=== PATIENT | male | born 1990 | race Caucasian/White ===

== ENCOUNTER 2020-04-21 03:49 | Emergency (ER) | payer SELFPAY ==
[2020-04-21 03:53] VITALS: BP 174/84; PULSE 118; RESP 16; TEMP 36.6; O2SAT 100
--- NOTE | 2020-04-21 04:07 | ED.ABDPAIN ---
HPI - Abdominal Pain General Chief Complaint: Abdominal Pain Stated Complaint: BLOODY STOOL Time Seen by Provider: 04/21/20 03:51 Source: RN notes reviewed History of Present Illness HPI narrative: Patient presents emergency department from home for blood in stool. Patient states approximate 1 hour ago he had an episode of bright red blood in the stool. States there is minimal stool mixed in with it he states it associated with left upper quadrant abdominal pain when he states symptoms initially occurred but states abdominal pain has resolved. He denies any fevers or chills nausea vomiting or any other symptoms he denies any previous history of blood in stool denies any previous GI history Related Data Home Medications Medication Instructions Recorded Confirmed No Home Medications 04/21/20 04/21/20 Allergies Allergy/AdvReac Type Severity Reaction Status Date / Time No Known Allergies Allergy Verified 04/21/20 03:55 Review of Systems Review of Systems: Narrative: Gen.: Denies fevers or chills ENT: Denies congestion Respiratory: Denies shortness of breath or cough CV: Denies chest pain or palpitations GI: See HPI denies burning, urgency, frequency or hematuria Musculoskeletal: Denies back pain or muscle pain Neuro: Denies numbness, tingling, weakness or focal weakness Skin: Denies rash Except as documented, all other systems reviewed and negative PMFSH Past Medical History Medical History (Updated 04/21/20 @ 05:51 by Ezra Schofield DO) Patient denies significant medical history Social History Social History (Updated 04/21/20 @ 04:08 by Ezra Schofield DO) Smoking status: Never smoker Gender identity (if verbalized by the patient): Male Exam Narrative: Exam Narrative: APPEARANCE: No acute distress, nontoxic, resting in bed HEENT: Normocephalic, atraumatic, OMM RESPIRATORY: No respiratory distress, clear to auscultation bilaterally with no rhonchi wheezing or rales CARDIOVASCULAR: RRR s murmur ABDOMINAL: Soft, nondistended, nontender to palpation no rebound or guarding Rectal: No hemorrhoids or fissures no active bleeding small amount of reddish-brown stool Hemoccult positive MUSCULOSKELETAl: Moves all extremities. No clubbing, cyanosis or edema. NEURO: Awake and alert. Following commands, speech normal, no focal deficits SKIN:: Warm, dry. Normal Color PSYCHIATRIC: Normal affect/mood Course Course Emergency Course: Discussed with Dr. Gunter for GI presentation work-up please patient will be discharged at this time with follow-up as an outpatient Discussed with patient who states he has been told he needs to see GI for work-up for possible Crohn's disease in past states has had problems with recurrent diarrhea Patient had a bowel movement in ED with no blood Discussed with patient results of workup and diagnosis. Discussed need for follow-up with primary care, proper use of medication, and reasons to return to the emergency department. Patient understands and agrees to current treatment plan Vital Signs Vital signs: Vital Signs Temperature 97.9 F 04/21/20 03:53 Pulse Rate 118 H 04/21/20 03:53 Respiratory Rate 16 04/21/20 03:53 Blood Pressure 174/84 H 04/21/20 03:53 Pulse Oximetry 100 04/21/20 03:53 Temperature 97.9 F 04/21/20 03:53 Pulse Rate 102 H 04/21/20 05:04 Respiratory Rate 18 04/21/20 05:04 Blood Pressure 139/95 H 04/21/20 05:04 Pulse Oximetry 99 04/21/20 05:04 MDM - Abdominal Pain Lab Data Result diagrams: 04/21/20 04:17 04/21/20 04:17 Labs: Lab Results 04/21/20 04/21/20 04/21/20 Range/Units 04:17 04:17 04:17 WBC 11.9 H (4.5-10.0) K/mm3 RBC 4.99 (4.6-6.20) M/mm3 Hgb 15.5 (14.0-18.0) g/dL Hct 42.4 (42.0-52.0) % MCV 85.0 (80-100) fl MCH 31.1 (26-34) pg MCHC 36.6 H (32-36) g/dl RDW 12.2 (11.5-14.5) % Plt Count 284 (150-375) k/mm3 MPV 10.8 H (7.4-10.4)
[2020-04-21] MEDS: SODIUM CHLORIDE 0.9% IV 1,000 ML 999 ML IV CONT (04:27)
[2020-04-21 04:30] LABS: Basophils Percent Auto 0.3 % (0.2-1.2); Eosinophils Absolute Auto 0.1 K/mm3 (0-0.3); Eosinophils Percent Auto 0.6 % (0-4.4); Hematocrit 42.4 % (42.0-52.0); Hemoglobin 15.5 g/dL (14.0-18.0); Immature Granulocyte Absolute 0.05 K/mm3 (0.00-0.031); Immature Granulocyte Percent A 0.4 % (0-0.5); Lymphocytes Absolute Auto 2.36 K/mm3 (0.9-3.2); Lymphocytes Percent Auto 19.9 % (18.3-44.2); Mean Corpuscular HGB Conc 36.6 g/dl (32-36); Mean Corpuscular Hemoglobin 31.1 pg (26-34); Mean Platelet Volume 10.8 fl (7.4-10.4); Monocytes Absolute Auto 0.7 K/mm3 (0.1-0.6); Monocytes Percent Auto 6.1 % (2.6-8.5); Neutrophils Absolute Auto 8.7 K/mm3 (1.3-6.7); Neutrophils Percent Auto 72.7 % (45.5-73.1); Platelet Count Result 284 k/mm3 (150-375); Red Blood Count 4.99 M/mm3 (4.6-6.20); Red Cell Distribution Width 12.2 % (11.5-14.5); White Blood Count 11.9 K/mm3 (4.5-10.0)
[2020-04-21 04:45] LABS: Alanine Aminotransferase 32 U/L (4-50); Albumin Level 4.5 g/dL (3.5-5.1); Alkaline Phosphatase 83 U/L (38-126); Aspartate Amino Transferase 44 U/L (17-59); Bilirubin,Total 0.4 mg/dL (0.2-1.3); Blood Urea Nitrogen 13 mg/dL (9-20); Calcium 9.3 mg/dL (8.4-10.2); Carbon Dioxide 26 mmol/L (22-30); Chloride 105 mmol/L (98-107); Estimated Glomerular Filt Rate > 60; Glucose 121 mg/dL (75-110); Lactic Acid Reflex 1.6 mmol/L (0.7-2.1); Lipase 216 U/L (23-300); Potassium 3.8 mmol/L (3.4-5.0); Sodium 140 mmol/L (137-145)
[2020-04-21 04:46] LABS: Partial Thromboplastin Time 28.3 SECONDS (22.3-36.8); Prothrombin Time 12.7 Seconds (11.1-14.7)
[2020-04-21 05:04] VITALS: BP 139/95; PULSE 102; RESP 18; O2SAT 99
[2020-04-21 06:29] VITALS: BP 112/98; PULSE 96; RESP 18; O2SAT 98
== END 2020-04-21 06:31 | disposition home or self-care (01) ==
PROVIDERS: Emergency Provider Emergency Medicine
DX: K92.2 Gastrointestinal hemorrhage, unspecified (principal)
CPT/HCPCS: 36415; 80053; 83605; 83690; 85025; 85610; 85730; 86850; 86900; 86901; 96360; 99283; J7030

== ENCOUNTER 2023-05-30 09:17 | Outpatient (CLI) | payer BC, SELFPAY ==
--- NOTE | ~2023-05-30 | SLEEP.INT_ITS ---
Titration Report Patient Name: FLACA AGUILLON Study Date: 05/30/2023 Referring Physician: Stefan Mims PA-C Indications for Polysomnography/Sleep History The patient is a 32 year-old male who is 5' 9 and weighs 285.0 lbs. His BMI equals 42.2. ESS 8. A fu ll night titration was performed to evaluate for severe obstructive sleep apnea on a home sleep test 04/13/2023 with an A HI 78.5 and desaturation to 71%. He did not complete a sleep questionnaire. Medical History Gastroesophageal reflux disease Medications None Polysomnogram Data A full night polysomnogram using the [employer]am[employer] Sleepluma-id multi-channel system recorded the standard phys iologic parameters including EEG, EOG, submentalis EMG, anterior tibialis EMG, EKG, body position, nasal and oral airflow using nasal pressure sensor and thermistor. Respiratory parameters of chest and abdominal movements were recorded with Respiratory Inductance Plethysmography belts. Oxygen saturation was recorded by pulse oximetry. Video monitoring was also performed. Sleep stages, periodic limb movements, and EEG arousals were scored in 30 second epochs according to the criteria of the AASM Scoring Manual. The Apnea-Hypopnea Index was calculated using CMS guidelines for definition of hypopnea while scoring respiratory events. Sleep Architecture The total recording time of the polysomnogram was 553.3 minutes. The total sleep time was 497.0 barbara ally. The patient spent 2.2% of total sleep time in Stage N1, 47.3% in Stage N2, 20.9% in Stages N3, and 29.6% in REM. Sleep latency was 6.0 minutes. REM latency was 67.5 minutes. Sleep Efficiency was 89.8%. Wake after Sleep Onset time was 50.0 minutes. Titration Summary The patient was titrated using a large ResMed AirTouch F20 fullface mask at pressures ranging from CP AP 7 cmH20 with 3 cm of EPR, 9th cm with 3 cm EPR, CPAP 10 cm with 3 cm EPR. Patient was transition to BiPAP , titrated through 09/27, 10/28, 03/08, 14, 15, 16/, 16/ with a backup rate of 12 with an apnea-hypopnea index of 0. Additional pressures included BiPAP with a backup rate of 12, 18/ with a rate of 12, wi th a rate of 12, with a rate of 12, 05/10 with a rate of 12. A backup rate was discontinued, patient was tested on 05/10, 05/11, , , . The last pressure the patient used was BiPAP with a backup rate of 12. Respiratory Events The polysomnogram revealed a presence of 147 obstructive, 67 central, and 4 mixed apneas resulting in an Apnea index of 26.3 events per hour. There were 64 hypopneas (???3% desat and/or Ar.) resulting in an Apnea ???3% desat and/or Ar.) of 34.0 events per hour. There were 64 hypopneas (???4% desat) resulting in an Apnea Index (AHI ???4% desat) of 34.0 events per hour. There were - Respiratory Effort Related Arousals re sulting in a RERA index of - events per hour. The Respiratory Disturbance Index is 34.0 events per hour. He had some p ost-arousal central apneas observed. Arousal Index There was a total of 244 arousals for an index of 29.5. There were 95 respiratory arousals for an in dex of 11.5. There were no periodic limb movement arousals for an index of 0. There were 0 isolated limb movement arous als for an index of 0 and 149 spontaneous arousals for an index of 18.0. Oximetry Data Mean oxygen saturation was 94.8%. The lowest oxygen saturation during sleep was 75.0%. Time spent w ith oxygen saturation at or below 88% was 34.0 minutes (6.2%). The patient had 258 desaturations of 4% or greate r for an index of 31.3. Cardiac Summary Electrocardiogram demonstrated normal sinus rhythm without arrhythmias; average pulse rate was 73 bpm . The minimum pulse rate was 56 bpm while the maximum pulse rate was 110 bpm. EEG Profile There was no evidence of epileptiform activity during sleep Limb Activity There
== END 2023-05-31 07:00 | disposition home or self-care (01) ==
PROVIDERS: PCP Physician Assistant; Visit Provider Physician Assistant
DX: G47.33 Obstructive sleep apnea (adult) (pediatric) (principal)
CPT/HCPCS: 95811

== ENCOUNTER 2023-07-22 12:43 | Emergency (ER) | payer BC, SELFPAY ==
[2023-07-22 12:49] VITALS: BP 146/100; PULSE 110; RESP 19; TEMP 36.6; O2SAT 99
--- NOTE | 2023-07-22 15:37 | ED.EAR ---
HPI - Ear Problem General Chief complaint: Ear Stated complaint: yeast infection L ear Time Seen by Provider: 07/22/23 12:52 Source: patient Mode of arrival: ambulatory Limitations: no limitations History of Present Illness HPI Narrative: patient is a pleasant 33 yo male with a past medical history of obesity, gerd, who presents to the ED today ambulatory with a steady gait for evaluation of left ear pain/itching and drainge with swelling. states he has a hx of outer ear infections and yeast infections. denies fever,chills, cough, sore throat, dizziness. states he has ofloxacin at home and has used the last 2 days. he has went swimming recently Related Data Allergies Allergy/AdvReac Type Severity Reaction Status Date / Time No Known Allergies Allergy Verified 07/22/23 13:19 Review of Systems Review of Systems: CONSTITUTIONAL: Denies fever, chills, or sweats. EYES: Denies visual changes, redness, or discharge. ENT: Denies rhinorrhea, congestion, sore throat, left ear itching/swelling/pain. CARDIOVASCULAR: Denies chest pain, palpitations, or edema. RESPIRATORY: Denies cough or dyspnea. GASTROINTESTINAL: Denies abdominal pain, nausea, vomiting, or diarrhea. GENITOURINARY: Denies dysuria or hematuria. SKIN: Denies rash or itching. MUSCULOSKELETAL: Denies back pain, joint pain, or myalgia. NEUROLOGIC: Denies headache, numbness, or weakness. PSYCHIATRIC: Denies anxiety or depression. All systems reviewed & are unremarkable except as noted in HPI and below PMFSH Past Medical History Medical History Blood in stool GERD (gastroesophageal reflux disease) Healthy adult Obese Surgical History Surgical History Pilonidal cyst with abscess 2007,2013,2014 Family History Family History Father Hypertension Heart disease Mother Healthy adult Diabetes mellitus Hypertension Sibling Crohn disease Social History Social History Smoking status: Former smoker Alcohol intake: current Substance use: never Other substance usage details: daily Lack of Transportation: No Lack of Food: Never True Current Housing: I Have Housing Concerned About Future Housing: No Difficulty Paying Gas/Electric Bills: No Difficulty Paying for Meds: No Currently Unemployed: No Education: High School Diploma/GED Difficulty w/ Childcare or Family Care: No Gender identity (if verbalized by the patient): Male Exam Narrative: GENERAL: Well-appearing, well-nourished, obese male sitting up on exam chair, and in no acute distress. HEAD: Normocephalic, atraumatic. EYES: PERRLA and EOMI. ENT: Nares clear, no rhinorrhea or epistaxis. Mucous membranes moist. left outer ear canal swelling/tenderness/swelling. no mastoid tenderness. there is not complete canal closure, aspect of TM visible does appear erythematous. NECK: Supple. CHEST: Clear to auscultation. No respiratory distress. HEART: Regular rate and rhythm. No murmur heard. Normal peripheral pulses. EXTREMITIES: Normal range of motion. No edema. SKIN: Warm, dry, no rash. NEURO: No focal deficits. Alert and oriented x3. CN II-XII grossly intact PSYCH: Normal mood and affect. Course Vital Signs Vital signs: Vital Signs Temperature 98 F 07/22/23 12:49 Pulse Rate 110 H 07/22/23 12:49 Respiratory Rate 07/22/23 12:49 Blood Pressure 146/100 H 07/22/23 12:49 Pulse Oximetry 99 07/22/23 12:49 Oxygen Delivery Room Air 07/22/23 12:49 Temperature 98 F 07/22/23 12:49 Pulse Rate 110 H 07/22/23 12:49 Respiratory Rate 07/22/23 12:49 Blood Pressure 146/100 H 07/22/23 12:49 Pulse Oximetry 99 07/22/23 12:49 Oxygen Delivery Room Air 07/22/23 12:49 Medical Decision Making MDM Narrative Medical decisio
== END 2023-07-22 14:24 | disposition home or self-care (01) ==
PROVIDERS: Emergency Provider Nurse Practitioner; PCP Physician Assistant
DX: H60.332 Swimmer's ear, left ear (principal); H66.92 Otitis media, unspecified, left ear; R03.0 Elevated blood-pressure reading, without diagnosis of hypertension; K21.9 Gastro-esophageal reflux disease without esophagitis; E66.9 Obesity, unspecified; Z68.39 Body mass index [BMI] 39.0-39.9, adult; Z87.891 Personal history of nicotine dependence
CPT/HCPCS: 99283

== ENCOUNTER 2024-05-26 18:24 | Emergency (ER) | payer BC, SELFPAY ==
--- NOTE | ~2024-05-26 | CT_ITS ---
EXAMINATION: CT abdomen pelvis w con DATE: 05/26/2024 19:51 INDICATION: Left lower quadrant abdominal pain TECHNIQUE: Computed tomography (CT) of the abdomen and pelvis was performed with 100 mL Omnipaque-350 intravenous contrast. Automated exposure control and iterative reconstruction technique were employe d. The dose-length product was 1406.91 mGy-cm. COMPARISON: None. FINDINGS: Lower thorax: Unremarkable Liver: Subcentimeter hypodensities that likely represent cysts or hemangiomas. Biliary/Gallbladder: Gallbladder is normal. No bile duct dilation. Pancreas: No mass or duct dilation. Spleen: Enlarged Adrenals:No mass. Kidneys: No suspicious mass, obstructing stone, or hydronephrosis. GI tract: No small or large bowel dilation. Normal appendix. Short segment perisigmoid inflammatory c hange in the left lower quadrant, with an associated inflamed sigmoid diverticulum. No free air or ab scess. Mesentery/Peritoneum: No ascites, mass, or free air. Retroperitoneum: No mass. Pelvis: Pelvic organs are within normal limits. Soft Tissues: Soft tissues and body wall unremarkable. Bones: No acute osseous finding. IMPRESSION: Splenomegaly. Acute, uncomplicated sigmoid diverticulitis. Reviewed, dictated and finalized at location K.
[2024-05-26 18:37] VITALS: BP 157/101; PULSE 98; RESP 14; TEMP 36.7; O2SAT 99
[2024-05-26 18:46] LABS: Basophils Percent Auto 0.2 % (0.2-1.2); Eosinophils Absolute Auto 0.1 K/mm3 (0-0.3); Eosinophils Percent Auto 0.7 % (0-4.4); Hematocrit 45.5 % (42.0-52.0); Hemoglobin 16.3 g/dL (14.0-18.0); Immature Granulocyte Absolute 0.07 K/mm3 (0.00-0.031); Immature Granulocyte Percent A 0.4 % (0-0.5); Lymphocytes Absolute Auto 2.26 K/mm3 (0.9-3.2); Lymphocytes Percent Auto 13.5 % (18.3-44.2); Mean Corpuscular HGB Conc 35.8 g/dl (32-36); Mean Corpuscular Hemoglobin 30.4 pg (26-34); Mean Corpuscular Volume 84.9 fl (80-100); Mean Platelet Volume 10.6 fl (7.4-10.4); Monocytes Absolute Auto 1.4 K/mm3 (0.1-0.6); Monocytes Percent Auto 8.1 % (2.6-8.5); Neutrophils Absolute Auto 12.9 K/mm3 (1.3-6.7); Neutrophils Percent Auto 77.1 % (45.5-73.1); Platelet Count Result 337 k/mm3 (150-375); Red Blood Count 5.36 M/mm3 (4.6-6.20); Red Cell Distribution Width 12.4 % (11.5-14.5); White Blood Count 16.7 K/mm3 (4.5-10.0)
[2024-05-26 18:58] LABS: Alanine Aminotransferase 25 U/L (6-50); Albumin Level 5.1 g/dL (3.5-5.1); Alkaline Phosphatase 80 U/L (38-126); Anion Gap 10 mmol/L (4-12); Aspartate Amino Transferase 36 U/L (17-59); Bilirubin,Total 1.5 mg/dL (0.2-1.3); Blood Urea Nitrogen 11 mg/dL (9-20); Calcium 9.3 mg/dL (8.4-10.2); Carbon Dioxide 25 mmol/L (22-30); Chloride 102 mmol/L (98-107); Estimated CRCL calculation 152 ml/min; Estimated Glomerular Filt Rate > 60; Glucose 108 mg/dL (65-110); Lipase 75 U/L (23-300); Sodium 137 mmol/L (137-145)
[2024-05-26] MEDS: SODIUM CHLORIDE 0.9% IV 1,000 ML 999 ML IV CONT (19:09)
--- NOTE | 2024-05-26 19:09 | PC.NURSE ---
Report received from ALEXIA Daniel. Assumed care of patient at this time.
[2024-05-26] MEDS: ONDANSETRON INJ 4 MG/2 ML VIAL IV PUSH (19:10)
--- NOTE | 2024-05-26 19:20 | ED.ABDPAIN ---
HPI - Abdominal Pain General Chief Complaint: Abdominal Pain Stated Complaint: ABD PAIN [id number] Time Seen by Provider: 05/26/24 18:41 History of Present Illness HPI narrative: Patient is a 33-year-old who presents emergency department with chief complaint of abdominal pain. Patient reports the last several days the pain in the left lower quadrant reports that this symptoms are improving every has a bowel movement reports that he has had a some slight discomfort whenever he urinates and reports that he was told that he had blood in his urine at the Urgent Care. The patient denies fever denies vomiting patient reports no prior abdominal surgery Related Data Allergies Allergy/AdvReac Type Severity Reaction Status Date / Time No Known Allergies Allergy Verified 05/26/24 18:44 Review of Systems Review of Systems: A 10 system review of systems was completed on the patient and is negative except for what is stated in the HPI. Nursing and ancillary documentation was reviewed. [facility] Past Medical History Medical History Blood in stool GERD (gastroesophageal reflux disease) Healthy adult Obese Surgical History Surgical History Pilonidal cyst with abscess 2007,2013,2014 Family History Family History Father Hypertension Heart disease Mother Healthy adult Diabetes mellitus Hypertension Sibling Crohn disease Social History Social History Social History: Caffeine-daily Smoking status: Former smoker Alcohol intake: current Alcohol use details: rarely Substance use: current Substance use type: marijuana Other substance usage details: daily Lack of Transportation: No Lack of Food: Never True Current Housing: I Have Housing Concerned About Future Housing: No Difficulty Paying Gas/Electric Bills: No Difficulty Paying for Meds: No Currently Unemployed: No Education: High School Diploma/GED Difficulty w/ Childcare or Family Care: No Gender identity (if verbalized by the patient): Male Exam Narrative: GENERAL: Well-appearing, well-nourished, and in no acute distress. HEAD: Normocephalic, atraumatic. EYES: PERRLA and EOMI. ENT: Nares clear, no rhinorrhea or epistaxis. Mucous membranes moist. NECK: Supple. CHEST: Clear to auscultation. No respiratory distress. HEART: Regular rate and rhythm. No murmur heard. Normal peripheral pulses. ABDOMEN: Soft, nontender, nondistended, normal active bowel sounds. EXTREMITIES: Normal range of motion. No edema. SKIN: Warm, dry, no rash. NEURO: No focal deficits. Alert and oriented x3. PSYCH: Normal mood and affect. Course Vital Signs Vital signs: Vital Signs Temperature 36.7 C 05/26/24 18:37 Pulse Rate 98 05/26/24 18:37 Respiratory Rate 14 05/26/24 18:37 Blood Pressure 157/101 H 05/26/24 18:37 Pulse Oximetry 99 05/26/24 18:37 Temperature 36.7 C 05/26/24 18:37 Pulse Rate 98 05/26/24 18:37 Respiratory Rate 14 05/26/24 18:37 Blood Pressure 157/101 H 05/26/24 18:37 Pulse Oximetry 99 05/26/24 18:37 MDM - Abdominal Pain MDM Narrative Medical decision making narrative: Differential diagnosis includes intra-abdominal infection, ureterolithiasis, diverticulitis, colitis Laboratory studies were obtained on patient white count 16.7 electrolytes are within normal limits bilirubin was 1.5 lipase was 75 Urinalysis is currently pending CT scan of the abdomen pelvis is currently pending CT scan of the abdomen pelvis showed evidence of acute uncomplicated diverticulitis patient is feeling much better at this time and will be started on p.o. antibiotics Lab Data 05/26/24 18:39 05/26/24 18:39 Labs: Lab Results 05/26/24
[2024-05-26 19:42] LABS: Appearance Urine Clear (Clear); Bacteria Urine None Seen /hpf; Bilirubin Urine 1+ (Negative); Blood Urine 1+ (Negative); Color Urine Dark Yellow (Yellow); Glucose Urine UA Negative (Negative); Ketones Urine 1+ mg/dL (Negative); Leukocyte Esterase Ur Trace LEU/UL (Negative); Need Manual Microscopic Reviewed; Nitrate Urine Negative (Negative); Protein Urine 1+ mg/dL (Negative); Specific Grav Ur 1.027 (1.001-1.035); Squamous Epithelial Cell Urine None Seen /hpf (Few); WBC Urine 0-5 /hpf (0-3)
[2024-05-26 19:44] LABS: Add Urine Microscopic? YES
[2024-05-26] MEDS: CIPROFLOXACIN 500 MG TAB PO (20:22)
[2024-05-26] MEDS: metroNIDAZOLE 500 MG TABLET PO (20:23)
[2024-05-26 20:27] VITALS: BP 149/100; PULSE 97; RESP 17; O2SAT 98
== END 2024-05-26 20:29 | disposition home or self-care (01) ==
PROVIDERS: Emergency Provider Emergency Medicine; PCP Physician Assistant
DX: K57.32 Diverticulitis of large intestine without perforation or abscess without bleeding (principal); K21.9 Gastro-esophageal reflux disease without esophagitis; E66.9 Obesity, unspecified; Z68.37 Body mass index [BMI] 37.0-37.9, adult; Z87.891 Personal history of nicotine dependence; R16.1 Splenomegaly, not elsewhere classified
CPT/HCPCS: 36415; 74177; 80053; 81001; 83690; 85025; 96361; 96374; 99284; A9270; J2405; J7030; Q9967